=== PATIENT | female | born 1975 | race American Indian/Alaskan Native ===

== ENCOUNTER 2020-02-17 18:26 | Emergency (ER) | payer OTHER ==
[2020-02-17 18:31] VITALS: BP 144/82
--- NOTE | 2020-02-17 19:03 | Emergency Department Report ---
ED General Adult HPI - General Chief complaint: Neck Pain/Injury Stated complaint: NECK SWELLING Time Seen by Provider: 02/17/20 18:47 Source: patient Mode of arrival: Ambulatory Limitations: No Limitations - History of Present Illness Initial comments: Patient is a 44-year-old female with no pertinent past medical history who presents emergency room for evaluation of multiple complaints. Chiefly patient states that she has had increasing number of areas of swelling over her body. Patient states that 1 week ago she developed a hard mass on her left abdomen and at the same time she also developed a right breast mass. Patient states that 3 days ago she then developed a very large mass on her thoracic outlet on the left. She states that the masses are painless she has had no fever no chills no cough no shortness of breath no nausea no vomiting no diarrhea. She also complains that she has had right lower back pain. She states her period started yesterday and the pain actually improved after her period began. 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 Severity scale (0 -10): 0 - Related Data Previous Rx's Medication Instructions Recorded Last Taken Type Cyclobenzaprine [Flexeril] 10 mg PO TID PRN #15 tablet 10/02/19 Unknown Rx Ibuprofen [Motrin] 800 mg PO Q8HR PRN #24 tablet 10/02/19 Unknown Rx Allergies Allergy/AdvReac Type Severity Reaction Status Date / Time No Known Allergies Allergy Unverified 10/02/19 19:56 ED Review of Systems ROS: Stated complaint: NECK SWELLING Other details as noted in HPI Constitutional: denies: chills, fever Eyes: denies: eye pain, eye discharge, vision change ENT: denies: ear pain, throat pain Respiratory: denies: cough, shortness of breath, wheezing Cardiovascular: denies: chest pain, palpitations Endocrine: no symptoms reported Gastrointestinal: denies: abdominal pain, nausea, diarrhea Genitourinary: denies: urgency, dysuria, discharge Musculoskeletal: back pain. denies: joint swelling, arthralgia Skin: lesions (left abdomen, left breast, left thoracic outlet). denies: rash Neurological: denies: headache, weakness, paresthesias Psychiatric: denies: anxiety, depression Hematological/Lymphatic: denies: easy bleeding, easy bruising Other: decreased sleep ED Past Medical Hx - Past Medical History Previous Medical History?: No - Surgical History Past Surgical History?: Yes Additional Surgical History: - Social History Smoking Status: Never Smoker Substance Use Type: None - Medications Home Medications: Home Medications Medication Instructions Recorded Confirmed Last Taken Type Cyclobenzaprine [Flexeril] 10 mg PO TID PRN #15 tablet 10/02/19 Unknown Rx Ibuprofen [Motrin] 800 mg PO Q8HR PRN #24 tablet 10/02/19 Unknown Rx ED Physical Exam - General Limitations: No Limitations General appearance: alert, in no apparent distress - Head Head exam: Present: atraumatic, normocephalic - Eye Eye exam: Present: normal appearance - ENT ENT exam: Present: mucous membranes moist - Neck Neck exam: Present: other (Large left thoracic outlet mass that is non painful to palpation). Absent: tenderness - Respiratory Respiratory exam: Present: normal lung sounds bilaterally. Absent: respiratory distress - Cardiovascular Cardiovascular Exam: Present: regular rate, normal rhythm. Absent: systolic murmur, diastolic murmur, rubs, gallop - GI/Abdominal GI/Abdominal exam: Present: soft, normal bowel sounds, mass (left abdomen 3cm mass ) - Extremities Exam Extremities exam: Present: normal inspection - Back Exam Back exam: Present: normal inspection - Neurological Exam Neurological exam: Present: alert, oriented X3 - Psychiatric Psychiatric exam: Present: normal affect, normal mood - Skin Skin exam: Present: warm, dry, intact, normal color, other (right breast mass measuring 3cm also noted.). Absent: rash ED Course Vital Signs 02/17/20 18:28 Temperature 98.0 F Pulse Rate 82 Respiratory 14 Rate Blood Pressure 144/82 [Right] O2 Sat by Pulse 99 Oximetry - Reevaluation(s) Reevaluation #1: 02/17/20 23:24 Patient has a mildly elevated creatinine of 1.4. And this is her only pertinent laboratory abnormality. However patient's CT scan demonstrates significant matted retroperitoneal soft tissue most consistent with lymphoma. This is resulting in obstruction of the left ureter with severe hydronephrosis. There is a subcutaneous soft tissue in the left upper quadrant correlate with physical exam and dedicated ultrasound however this is most likely related to lymphoma. Gallbladder wall thickening without stones is also noted and could potentially be due to lymphoma may test involvement of the gallbladder. There is an axillary lymph node as well which could be related to lymph node or breast tissue of the axillary tail. Patient also has a 4 mm right lower lobe pulmonary nodule that is most likely benign however follow-up imaging is recommended. I discussed these findings with the patient and advised her to follow-up with her primary care provider who would be best able to refer her to both urology with concern for the cancer induced hydronephrosis and also to oncology for staging of her cancer and initiation of treatment. Patient expressed understanding and agreement of the plan of care. She was given IV fluids for her Jorge Luis prior to discharge. 02/17/20 23:32 02/17/20 23:37 ED Medical Decision Making - Lab Data Result diagrams: 02/17/20 19:06 02/17/20 19:06 - Medical Decision Making 44-year-old female presenting with multiple areas of masses on her body. (Left thoracic outlet left abdominal wall right breast. Vital signs stable on ED ar rival. Physical exam redemonstrates solid palpable painless masses as described in HPI. Gave consideration to TB versus lipomas versus metastatic disease. CT abdomen and chest were ordered to evaluate further and basic labs were ordered to coordinate imaging. Additionally patient complained of lower back pain and consideration was given to urinary tract infection versus low back pain secondary to menses. CT imaging will also characterize further. As it relates to decreased sleep, I had a discussion with the patient regarding sleep aids and sleep hygiene. She expressed understanding of sleep hygiene and was amenable to trying that as her first measure to address her issues with sleep. Dispo pending remainder of her work-up. Critical care attestation.: If time is entered above; I have spent that time in minutes in the direct care of this critically ill patient, excluding procedure time. ED Disposition Clinical Impression: Lymphoma, JORGE LUIS (acute kidney injury), Hydronephrosis Disposition: TO HOME OR SELFCARE Is pt being admited?: No Does the pt Need Aspirin: No Condition: Stable Instructions: Acute Kidney Injury, Adult, Hydronephrosis Referrals: [facility] [Provider Group] - 3-5 Days Time of Disposition: 23:24
[2020-02-17 19:18] LABS: Basophils % (Auto) 0.3 % (0.0-1.8); Eosinophils # (Auto) 0.3 K/mm3 (0.0-0.4); Hemoglobin 11.4 gm/dl (10.1-14.3); Lymphocytes # (Auto) 1.8 K/mm3 (1.2-5.4); Lymphocytes % (Auto) 28.1 % (13.4-35.0); Mean Corpuscular HGB Conc 34 % (30-34); Mean Corpuscular Volume 85 fl (79-97); Monocytes # (Auto) 0.4 K/mm3 (0.0-0.8); Monocytes % (Auto) 6.9 % (0.0-7.3); Platelet Count 172 K/mm3 (140-440); Red Blood Count 3.99 M/mm3 (3.65-5.03); Red Cell Distribution Width 13.5 % (13.2-15.2)
[2020-02-17 19:40] LABS: Albumin 3.8 g/dL (3.9-5); Calcium 9.1 mg/dL (8.4-10.2)
[2020-02-17 21:47] LABS: Bacteria,Urine 1+ /HPF (Negative); Bilirubin,Urine NEG (Negative); Blood,Urine LG (Negative); Color,Urine Yellow (Yellow); Mucus,Urine FEW /HPF; Protein,Urine <15 mg/dL mg/dL (Negative); Urobilinogen,Urine < 2.0 mg/dL (<2.0)
[2020-02-17 21:48] LABS: RBC,Urine > 182.0 /HPF (0.0-6.0)
[2020-02-17 21:54] LABS: HCG Qualitative,Urine Negative (Negative)
--- NOTE | 2020-02-17 23:11 | Cat Scan Report ---
CT chest w con, CT abdomen pelvis w con INDICATION / CLINICAL INFORMATION: thoracic outlet, abd wall and breast swelling. TECHNIQUE: Axial CT images were obtained through the chest, abdomen and pelvis. All CT scans at this location ar e performed using CT dose reduction for ALARA by means of automated exposure control. COMPARISON: None available. FINDINGS: CHEST: Lungs: Lungs are clear No pleural effusion. No pneumothorax. 3 mm posterior basal segment right low er lobe pulmonary nodule on image 35 series 6. Heart: No significant abnormality. Mediastinum: No significant abnormality. ADDITIONAL FINDINGS: There is subcutaneous soft tissue extending in the example on image 18 of series 2 measuring 1.7 cm. Possible skin thickening in the bilateral axilla. ABDOMEN and PELVIS: Liver: No significant abnormality. Biliary: Nondistended gallbladder with significant perigallbladder thickening of soft tissue attenuat ion. Spleen: No significant abnormality. Unenlarged. Pancreas: No significant abnormality. Adrenals: No significant abnormality. Kidneys: Severe left hydronephrosis. Delayed left renal nephrogram consistent with obstruction. Perin ephric fluid is present. Lymphatics: There is matted retroperitoneal soft tissue in the retroperitoneum predominantly in the p eriaortic compartments. The adenopathy extends along the left greater than right iliac chain. Vasculature: No significant abnormality. Bowel: Small umbilical hernia containing short segment of bowel. No obstruction. No significant abnor mality. Pelvis: Fundal fibroid. Ovaries appear symmetric. Osseous Structures: No aggressive osseous lesion. Additional Findings: Soft tissue measuring 2.7 cm in the left ventral upper abdomen subcutaneous soft tissues on image 25 series 3. This extends to and involves the skin. IMPRESSION: 1. Significant matted retroperitoneal soft tissue most consistent with lymphoma. This is resulting in obstruction of the left ureter with severe hydronephrosis. 2. There is a subcutaneous soft tissue in the left upper quadrant. Correlate with physical exam and d edicated ultrasound however this is most likely related to lymphoma. 3. Gallbladder wall thickening without stones which is thought to be related to lymphomatous involvem ent of the gallbladder. Dedicated ultrasound recommended. 4. There is a subcutaneous left axillary nodule which could be related to a lymph node or breast tiss ue in the axillay tail. 5. 4 mm right lower lobe pulmonary nodule is most likely benign in etiology. However, further attenti on to be made on follow-up imaging. Signer Name: Elia Eid MD Signed: 02/17/2020 11:07 PM Workstation Name: [id number]
[2020-02-17] MEDS ORDERED: SODIUM CHLORIDE 0.9% 1000 ML 1,000 ML IV ONE (23:14)
== END 2020-02-18 00:23 | disposition home or self-care (01) ==
LOC: ED 18:26
DX: C85.90 Non-Hodgkin lymphoma, unspecified, unspecified site (principal); N17.9 Acute kidney failure, unspecified; N13.30 Unspecified hydronephrosis; Z98.890 Other specified postprocedural states; Z79.899 Other long term (current) drug therapy
CPT/HCPCS: 36415; 71260; 74177; 80053; 81001; 81025; 84703; 85025; 96360; 99284; J7030; Q9967

== ENCOUNTER 2020-09-19 06:30 | Day surgery (SDC) | payer BC ==
[~2020-09-19 06:30] MED LIST: LACTATED RINGERS 1,000 ML IV SCH; MIDAZOLAM 2 MG/2 ML INJ IV NR
[2020-09-19] MEDS ORDERED: LIDOCAINE MPF (2%) 20 MG/1 ML VIAL 5 ML ONE (08:19)
[2020-09-19] MEDS ORDERED: fentaNYL 100 MCG/2 ML INJ ONE (08:19)
[2020-09-19] MEDS ORDERED: propofoL 200 MG/20 ML VIAL IV ONE (08:20)
--- NOTE | 2020-09-19 08:42 | Anesthesia Day of Surgery ---
Anesthesia Day of Surgery - Day of Surgery Patient Examined: Yes Patient H&P Reviewed: Yes Patient is NPO: Yes
--- NOTE | 2020-09-19 08:43 | Anesthesia Consultation ---
Anesthesia Consult and Med Hx Date of service: 09/19/20 - Airway Anesthetic Teeth Evaluation: Good ROM Head & Neck: Adequate Mental/Hyoid Distance: Adequate Mallampati Class: Class III Intubation Access Assessment: Possibly Difficult (previous LMA 4) - Pre-Operative Health Status ASA Pre-Surgery Classification: ASA3 Proposed Anesthetic Plan: General - Pulmonary Hx Respiratory Symptoms: No (hx PE on eliquis; last dose 09/18/20) - Cardiovascular System Hx Hypertension: No Hx Heart Attack/AMI: No - Central Nervous System CVA: No - Endocrine Hx Renal Disease: No Hx Liver Disease: No Hx Insulin Dependent Diabetes: No Hx Non-Insulin Dependent Diabetes: No - Hematic Hx Anemia: Yes (thrombocytopenia) - Other Systems Hx Cancer: Yes - Additional Comments Anesthesia Medical History Comments: No hx anesthetic complications. Plt 90 today. Surgeon aware and OK to proceed.
[2020-09-19 08:53] LABS: Hematocrit 35.8 % (30.3-42.9); Hemoglobin 12.2 gm/dl (10.1-14.3); Mean Corpuscular HGB Conc 34 % (30-34); Mean Corpuscular Volume 90 fl (79-97); Red Blood Count 3.96 M/mm3 (3.65-5.03); Red Cell Distribution Width 17.1 % (13.2-15.2)
[2020-09-19] MEDS ORDERED: ceFAZolin/Water 2 GM/20 ML 2 GM/20 ML SYRINGE IV ONE (09:01)
[2020-09-19] MEDS ORDERED: ONDANSETRON 4 MG/2 ML INJ IV PRN (09:01)
[2020-09-19] MEDS ORDERED: HYDROcodone/ACETAMINOPHEN 5-325 MG TAB PO PRN (09:01)
[2020-09-19] MEDS ORDERED: fentaNYL 100 MCG/2 ML INJ IV PRN (09:01)
[2020-09-19] MEDS ORDERED: ceFAZolin/STERILE WATER 2 GM/20 ML SYRINGE IV NR (09:02)
[2020-09-19 09:15] LABS: Platelet Count 90 K/mm3 (140-440)
[2020-09-19] MEDS ORDERED: WATER FOR IRRIG STERILE 2000 ML IR ONE (09:45)
[2020-09-19] MEDS ORDERED: WATER FOR IRRIG STERILE 1,500 ML BOTTLE IR ONE (09:45)
[2020-09-19] MEDS ORDERED: ePHEDrine SULFATE 50 MG/1 ML INJ ONE (09:47)
--- NOTE | 2020-09-19 10:21 | Short Stay Summary ---
Short Stay Documentation Date of service: 09/19/20 - History H&P: obtained from office - Allergies and Medications Current Medications: Allergies No Known Allergies Allergy (Verified 09/11/20 14:19) Home Medications Medication Instructions Recorded Confirmed Last Taken Type Apixaban [Eliquis] 5 mg PO QAM #600 tablet 04/04/20 09/19/20 09/18/20 Rx Active Medications Hydrocodone Bitart/Acetaminophen (Hydrocodone/Acetaminophen 5-325 Mg Tab) 2 each PO ONCE PRN PRN Reason: Pain, Moderate (4-6) Stop: 09/19/20 10:30 Fentanyl (Fentanyl 100 Mcg/2 Ml Inj) 50 mcg IV Q5MIN PRN PRN Reason: Pain , Severe (7-10) Stop: 09/19/20 23:00 Lactated Ringer's (Lactated Ringers) 1,000 mls @ 100 mls/hr IV DIRECT SKY Stop: 09/19/20 23:59 Midazolam HCl (Midazolam 2 Mg/2 Ml Inj) 2 mg IV PREOP NR Stop: 09/19/20 23:00 Ondansetron HCl (Ondansetron 4 Mg/2 Ml Inj) 4 mg IV ONCE PRN PRN Reason: Nausea And Vomiting Stop: 09/19/20 10:30 - Brief post op/procedure progress note Date of procedure: 09/19/20 Pre-op diagnosis: bilat hyronephrosis Post-op diagnosis: same Procedure: cysto, left rpg, bilat stent exchange 6f x 22cm short string---internal - Hospital course Hospital course: macrobid & norco on chart - Disposition Condition at discharge: Stable Disposition: DC-01 TO HOME OR SELFCARE Short Stay Discharge Plan Follow up with: PRIMARY CARE, [Primary Care Provider] - 7 Days
--- NOTE | 2020-09-19 10:41 | Operative Report ---
DATE OF SURGERY: 09/19/2020 PREOPERATIVE DIAGNOSIS: Bilateral hydronephrosis, status post bilateral stent placement. POSTOPERATIVE DIAGNOSIS: Bilateral hydronephrosis, status post bilateral stent placement. PROCEDURE PERFORMED: Cystoscopy, left retrograde pyelogram, bilateral double-J stent exchange (6-Dutch 22 cm with a short internal string). SURGEON: Pete Burroughs M.D. ANESTHESIA: General. ESTIMATED BLOOD LOSS: Minimal. FLUIDS: Crystalloid. COMPLICATIONS: No complications. INDICATIONS: This patient is a 45-year-old female, originally seen in March of this year. She had a pulmonary embolus workup, revealed a colon cancer, which she is seeing Dr. Thomason at [facility], her director operations broadcast is Dr. Law. She presents for stent exchange and she is continuing chemotherapy at this point. DESCRIPTION OF PROCEDURE: The patient was taken to the operative suite, placed in supine position. After adequate general anesthesia, was placed in the dorsal lithotomy position, prepped and draped in a sterile fashion. Pancystourethroscopy was performed with a 22-Dutch Storz cystoscope. Obvious stents in the bladder. No tumors or stones. Paint Sprayer Sandblaster film revealed an adequate position. Left retrograde pyelogram was performed. There appeared to be somewhat of a blockage in the distal third of the ureter. I did not want to manipulate too much due to she is still on her anticoagulant therapy for pulmonary embolus. A 0.035 Glidewire was advanced up the ureter. Stent was removed. A new 6-Dutch 22 cm stent was placed under fluoroscopic guidance. A similar procedure was performed on the right. No attempt at pyelogram was obtained on this side. Stents were in good position, documented under fluoroscopy. The patient tolerated the procedure well. She was extubated and taken to recovery room. She will go home on [employer] and follow up in the office. TID: [id number] RECEIPT: [id number] MARICRUZ/JUDITH
[2020-09-19 11:02] VITALS: BP 126/77
--- NOTE | 2020-09-19 11:50 | Post Anesthesia Evaluation ---
- Post Anesthesia Evaluation Patient Participated: Yes Airway Patent: Yes Stable Respiratory Function: Yes Nausea/Vomiting: No Temp > 96.8F: Yes Pain Manageable: Yes Adequeate Hydration: Yes Anesthesia Complications: No
--- NOTE | 2020-09-19 20:18 | Fluoroscopy Report ---
INTRAOPERATIVE FLUOROSCOPY: RETROGRADE UROGRAPHY INDICATION / CLINICAL INFORMATION: HYDRONEPHROSIS. TECHNIQUE: Intraoperative spot images were obtained during the procedure. FINDINGS: Images show ureteral stent placement and retrograde pyelogram See operative/procedure note by performing physician for full details. Fluoroscopy Time: 33 seconds. Fluoroscopy Images: 3. Signer Name: Gavin Liu MD Signed: 09/19/2020 8:14 PM Workstation Name: [id number]
== END 2020-09-19 11:55 | disposition home or self-care (01) ==
LOC: OR 06:30
PROVIDERS: ATTEND Urology
DX: N13.1 Hydronephrosis with ureteral stricture, not elsewhere classified (principal); D69.6 Thrombocytopenia, unspecified; C80.1 Malignant (primary) neoplasm, unspecified; Z71.3 Dietary counseling and surveillance; Z79.899 Other long term (current) drug therapy; Z98.890 Other specified postprocedural states; Z20.822 Contact with and (suspected) exposure to COVID-19
CPT/HCPCS: 36415; 52332; 74420; 84703; 85027; A4217; C1758; C1769; C2617; J0690; J2704; J3010; J7120; Q9967; U0003

== ENCOUNTER 2021-01-09 14:02 | Emergency (ER) | payer BC, OTHER ==
--- NOTE | 2021-01-09 14:51 | Emergency Department Report ---
ED General Adult HPI - General Chief complaint: Vaginal Bleeding Stated complaint: VAGINAL BLEEDING PUI?: No Time Seen by Provider: 01/09/21 14:24 Source: patient Mode of arrival: Ambulatory Limitations: No Limitations - History of Present Illness Initial comments: 45-year-old female presents to the ER today with complaints of abnormal vaginal bleeding. Patient states that the bleeding started about 3 weeks ago. Patient states that bleeding has been heavier than menstrual cycle with passage of clots. She is unable to recall exactly normal pad she has been changing over the past 3 weeks, but today she is only changed to. She states the last time she had a normal menstrual cycle was in October 2020. She states that she knows she is not . She states that she thought the bleeding was related to her being on Eliquis which she takes for pulmonary embolus and so she followed up with her vascular surgeon around 3 weeks ago. She states that her dose was decreased from 5 mg twice a day to 2.5 mg twice a day and she was instructed that if the bleeding does not stop to follow-up with her [facility]. Patient states that she called to make a follow-up appointment, they did not have any appointments until January. She did not make an appointment. She did see her primary care doctor yesterday who did labs and her hemoglobin at the time was 9. She states that the main reason she is here is because she wants medication to have the bleeding stopped and was hoping to see the [facility] here in the ER today. She reports ass ociated generalized fatigue and weakness. She denies any associate abdominal cramps. She denies any abnormal discharge or UTI symptoms. She denies any fever or chills. She states that she has never been on any control. Other than the PE she denies any other significant past medical history. She states she has been taking her iron supplements. Complaint: Abnormal vaginal bleeding -: week(s) (3) Severity scale (0 -10): 4 - Related Data Previous Rx's Medication Instructions Recorded Last Taken Type Apixaban [Eliquis] 5 mg PO QAM #600 tablet 04/04/20 09/18/20 Rx Allergies Allergy/AdvReac Type Severity Reaction Status Date / Time No Known Allergies Allergy Verified 09/11/20 14:19 ED Review of Systems ROS: Stated complaint: VAGINAL BLEEDING Other details as noted in HPI Comment: All other systems reviewed and negative Constitutional: denies: chills, diaphoresis, fever, malaise, weakness Eyes: denies: eye pain, eye discharge, vision change ENT: denies: ear pain, throat pain Respiratory: denies: cough, shortness of breath, SOB with exertion, SOB at rest, wheezing Cardiovascular: denies: chest pain, palpitations, dyspnea on exertion, orthopnea, edema, syncope, paroxysmal nocturnal dyspnea Gastrointestinal: denies: abdominal pain, nausea, vomiting, diarrhea, constipation, hematemesis, hematochezia Genitourinary: abnormal menses. denies: urgency, dysuria, frequency, hematuria, discharge, dyspareunia Neurological: denies: headache, weakness, paresthesias Psychiatric: denies: anxiety, depression, auditory hallucinations, visual hallucinations, homicidal thoughts, suicidal thoughts Hematological/Lymphatic: denies: easy bleeding, easy bruising, swollen glands ED Past Medical Hx - Past Medical History Previous Medical History?: Yes Hx Hypertension: No Hx Heart Attack/AMI: No Hx Deep Vein Thrombosis: Yes (03/2020 LEFT POPLITEAL- ON ELIQUIS) Hx Pulmonary Embolism: Yes (MORE PE'S 03/2020 ON ELIQUIS) Hx Liver Disease: No Hx Renal Disease: No - Surgical History Past Surgical History?: Yes Additional Surgical History: - Social History Smoking Status: Never Smoker - Medications Home Medications: Home Medications Medication Instructions Recorded Confirmed Last Taken Type Apixaban [Eliquis] 5 mg PO QAM #600 tablet 04/04/20 09/19/20 09/18/20 Rx ED Physical Exam - General Limitations: No Limitations General appearance: alert, in no apparent distress - Head Head exam: Present: atraumatic, normocephalic, normal inspection - Eye Eye exam: Present: normal appearance, PERRL, EOMI, other (Mildly pale conjunctivia ) Pupils: Present: normal accommodation - Neck Neck exam: Present: normal inspection, full ROM - Respiratory Respiratory exam: Present: normal lung sounds bilaterally. Absent: respiratory distress, wheezes, rales, rhonchi, stridor - Cardiovascular Cardiovascular Exam: Present: regular rate, normal rhythm, normal heart sounds - GI/Abdominal GI/Abdominal exam: Present: soft. Absent: distended, tenderness, guarding, rebound - Neurological Exam Neurological exam: Present: alert, oriented X3, CN II-XII intact, normal gait - Psychiatric Psychiatric exam: Present: normal affect, normal mood - Skin Skin exam: Present: intact ED Course Vital Signs 01/09/21 14:03 Temperature 97.1 F L Pulse Rate 101 H Respiratory 18 Rate Blood Pressure 134/95 [Right] O2 Sat by Pulse 99 Oximetry ED Medical Decision Making - Lab Data Result diagrams: 01/09/21 14:52 01/09/21 14:52 - Medical Decision Making CBC normal. HCG negative Pt is well appearing, not toxic and not in any distress. She denies abd pain and she has soft non tender abd. She is neurologically intact with nl gait. She is hemodynamically stable Discussed results with patient. Recommend she continue taking iron supplements. Patient request medication to stop the bleeding, informed patient that typically would give medication like Provera which is hormone, but given her history of PE, I told patient it is best that she follows up with [facility] instead of getting the prescription I can cause DVT/PE. Also her hemoglobin is stable which means that her body is compensating for the bleeding. Patient expressed understanding of all instructions and agree with plan. Patient stable at time of discharge. Critical care attestation.: If time is entered above; I have spent that time in minutes in the direct care of this critically ill patient, excluding procedure time. ED Disposition Clinical Impression: Abnormal vaginal bleeding Disposition: 01 HOME / SELF CARE / HOMELESS Is pt being admited?: No Does the pt Need Aspirin: No Condition: Stable Instructions: Abnormal Uterine Bleeding Additional Instructions: Recommend that you continue taking your iron supplements. I do recommend that you call and make an appointment to see [facility] for evaluation of your abnormal vaginal bleeding. Return to the ER if any of your symptoms worsens. Referrals: [facility] [Provider Group] - 3-5 Days [facility] [Provider Group] - 3-5 Days Time of Disposition: 16:13
[2021-01-09 15:26] LABS: Alanine Aminotransferase 12 units/L (7-56); Albumin 4.1 g/dL (3.9-5); BUN/Creatinine Ratio 7; Blood Urea Nitrogen 8 mg/dL (7-17); Calcium 9.2 mg/dL (8.4-10.2); Hemolysis Index 3
[2021-01-09 16:10] LABS: Basophils % (Auto) 0.1 % (0.0-1.8); Eosinophils # (Auto) 0.1 K/mm3 (0.0-0.4); Eosinophils % (Auto) 2.5 % (0.0-4.3); Hematocrit 33.3 % (30.3-42.9); Hemoglobin 10.5 gm/dl (10.1-14.3); Lymphocytes # (Auto) 1.2 K/mm3 (1.2-5.4); Lymphocytes % (Auto) 26.4 % (13.4-35.0); Mean Corpuscular HGB Conc 32 % (30-34); Mean Corpuscular Volume 91 fl (79-97); Monocytes # (Auto) 0.4 K/mm3 (0.0-0.8); Platelet Count 168 K/mm3 (140-440); Red Blood Count 3.66 M/mm3 (3.65-5.03); Red Cell Distribution Width 16.6 % (13.2-15.2)
[2021-01-09 16:22] VITALS: BP 121/76
== END 2021-01-09 16:22 | disposition home or self-care (01) ==
LOC: ED 14:02
DX: N93.9 Abnormal uterine and vaginal bleeding, unspecified (principal)
CPT/HCPCS: 36415; 80053; 84703; 85025; 99283

== ENCOUNTER 2021-03-28 11:39 | Day surgery (SDC) | payer OTHER ==
[2021-03-28] MEDS ORDERED: SODIUM CHLORIDE 0.9% 500 ML 500 ML IV SCH ×2 (12:15→13:00)
[2021-03-28] MEDS ORDERED: fentaNYL 100 MCG/2 ML INJ IV ONE (12:39)
[2021-03-28] MEDS ORDERED: SODIUM CHLORIDE 0.9% 1000 ML 1,000 ML ONE (13:19)
[2021-03-28 13:23] LABS: Basophils % (Auto) 0.1 % (0.0-1.8); Eosinophils % (Auto) 0.1 % (0.0-4.3); Hematocrit 33.7 % (30.3-42.9); Hemoglobin 10.7 gm/dl (10.1-14.3); Lymphocytes # (Auto) 0.9 K/mm3 (1.2-5.4); Lymphocytes % (Auto) 10.7 % (13.4-35.0); Mean Corpuscular HGB Conc 32 % (30-34); Mean Corpuscular Volume 79 fl (79-97); Monocytes # (Auto) 0.6 K/mm3 (0.0-0.8); Monocytes % (Auto) 6.5 % (0.0-7.3); Platelet Count 345 K/mm3 (140-440); Red Blood Count 4.24 M/mm3 (3.65-5.03); Red Cell Distribution Width 17.3 % (13.2-15.2)
[2021-03-28 13:32] LABS: INR 1.16 (0.87-1.13)
[2021-03-28 13:33] LABS: Partial Thromboplastin Time 26.5 Sec. (24.2-36.6)
[2021-03-28] MEDS ORDERED: KETAMINE/STERILE WATER 50 MG/ML SYRINGE ONE (13:35)
[2021-03-28] MEDS ORDERED: fentaNYL 100 MCG/2 ML INJ ONE (13:35)
[2021-03-28] MEDS ORDERED: MIDAZOLAM 2 MG/2 ML INJ ONE (13:35)
[2021-03-28] MEDS ORDERED: LIDOCAINE MPF (2%) 20 MG/1 ML VIAL 5 ML ONE (13:36)
--- NOTE | 2021-03-28 13:44 | Anesthesia Day of Surgery ---
Anesthesia Day of Surgery - Day of Surgery Patient Examined: Yes Patient H&P Reviewed: Yes Patient is NPO: Yes
--- NOTE | 2021-03-28 13:48 | Anesthesia Consultation ---
Anesthesia Consult and Med Hx Date of service: 03/28/21 - Airway Anesthetic Teeth Evaluation: Good ROM Head & Neck: Adequate Mental/Hyoid Distance: Adequate Mallampati Class: Class III Intubation Access Assessment: Probably Good - Pre-Operative Health Status ASA Pre-Surgery Classification: ASA3 Proposed Anesthetic Plan: MAC (GA if needed) - Pulmonary Hx Smoking: No Hx Respiratory Symptoms: No (hx PE on eliquis) SOB: Yes - Cardiovascular System Hx Hypertension: No Hx Heart Attack/AMI: No - Central Nervous System CVA: No - Gastrointestinal Hx Gastroesophageal Reflux Disease: No - Endocrine Hx Renal Disease: Yes (Stents because of lymphoma) Hx End Stage Renal Disease: No Hx Liver Disease: No Hx Insulin Dependent Diabetes: No Hx Non-Insulin Dependent Diabetes: No - Hematic Hx Anemia: Yes (thrombocytopenia) Hx Sickle Cell Disease: No - Other Systems Hx Cancer: Yes Hx Obesity: No - Additional Comments Anesthesia Medical History Comments: Was here [id number] and [id number]
[2021-03-28 13:52] LABS: Calcium 9.4 mg/dL (8.4-10.2)
[2021-03-28] MEDS ORDERED: HEPARIN 10,000 UNITS/10 ML VIAL ONE (14:23)
[2021-03-28] MEDS ORDERED: HEPARIN/NS 5000 UNIT/500ML 1,000 ML IR ONE (14:23)
[2021-03-28] MEDS ORDERED: ceFAZolin/Water 2 GM/20 ML 2 GM/20 ML SYRINGE IV ONE (14:24)
[2021-03-28] MEDS: LIDOCAINE (2%) 20 MG/1 ML VIAL 20 ML MDV INFILTRATI ONE ×2 (14:44→14:55)
[2021-03-28] MEDS ORDERED: FAMOTIDINE 20 MG/2 ML INJ IV ONE (15:22)
--- NOTE | 2021-03-28 15:41 | Short Stay Summary ---
Short Stay Documentation Date of service: 03/28/21 - History Principal diagnosis: Left lower extremity swelling H&P: obtained from office - Allergies and Medications Current Medications: Allergies No Known Allergies Allergy (Verified 09/11/20 14:19) Home Medications Medication Instructions Recorded Confirmed Last Taken Type Apixaban [Eliquis] 5 mg PO QAM #600 tablet 04/04/20 03/28/21 03/28/21 11:00 Rx Active Medications Sodium Chloride (Nacl 0.9% 500 Ml) 500 mls @ 50 mls/hr IV DIRECT SKY - Brief post op/procedure progress note Date of procedure: 03/28/21 Pre-op diagnosis: Left lower extremity swelling Post-op diagnosis: same Procedure: Left lower extremity IVUS, venogram, stent placement with venoplasty Anesthesia: local Surgeon: ANGEL DELGADO Estimated blood loss: minimal Pathology: none Condition: stable - Disposition Condition at discharge: Good Disposition: 01 HOME / SELF CARE / HOMELESS Short Stay Discharge Plan Activity: advance as tolerated Weight Bearing Status: Weight Bear as Tolerated Diet: regular Wound: keep clean and dry, per your surgeon's advice Follow up with: EUGENIO MELARA JR, MD [Primary Care Provider] - 7 Days
--- NOTE | 2021-03-28 15:49 | Operative Report ---
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 Patient with symptomatic severe pain and swelling involving her left leg. Date: 03/28/2021 Procedure: Following an explanation of the risks, benefits and alternatives; written informed consent was obtained. The patient was brought to the angiographic suite and placed in supine position on the examination table. Initial ultrasound evaluation of the patient's left leg was performed. Significant soft tissue edema is identified throughout the left leg. Ultimately, the small saphenous vein was chosen for access. 1% lidocaine was used for anesthesia. Under ultrasound guidance, a 7 cm 21-gauge needle was advanced into the small saphenous vein. A 0.018 guidewire was advanced through the needle. The needle was removed and a microsheath placed. The 0.018 guidewire was exchanged for a 0.035 guidewire and the micro sheath exchanged for a 5 Italian vascular sheath. Contrast was injected which demonstrates appropriate positioning with prompt opacification of the femoral vein. Venogram was performed throughout the sheath and catheters placed in the femoral vein, external iliac vein and common iliac vein on the left. 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 The sheath was upsized over the guidewires to a 10 Italian sheath. Intravascular ultrasound was performed from the IVC to the mid femoral vein. This demonstrates 80% stenosis in the common iliac vein at the origin and well as a separate 70% stenosis at the inguinal ligament. A 16 mm x 150 mm Opry stent was advanced through the sheath and deployed from the bifurcation into the external iliac vein. A 14 mm x 150 mm Optiray venous stent was advanced through the sheath and deployed from the external iliac vein into the proximal femoral vein. The stents were seated using a 14 mm x 40 mm balloon insufflated nominal atmospheres for 30 seconds at multiple locations. Post intervention imaging demonstrated improved flow from the left lower extremity with nonvisualization of cross pelvic collaterals. The guidewires catheters and sheaths were removed and hemostasis achieved at the cath using manual compression. Pressure dressing was applied. The patient tolerated the procedure well. There were no immediate post procedure complications. Given the patient's multiple comorbidities, the patient was anesthetized using anesthesia services. Continuous cardiopulmonary monitoring was utilized. 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 2) Intravascular ultrasound from the IVC with imaged vessels including the IVC, left common iliac vein, left external iliac vein, left common femoral vein and proximal left femoral vein demonstrating 80% stenosis in the left common iliac vein at the origin and separate 70% stenosis of the external iliac vein at the inguinal ligament. 3) Treatment of the stenosis with placement of a 16 mm x 150 mm stent extending from the bifurcation to the external iliac vein with 14 mm x 150 mm stent extending from the external iliac vein to the femoral vein. The stents were seated using a 14 mm balloon. Post stent placement and post venoplasty imaging demonstrated improved flow with nonvisualization of collateral vessels.
[2021-03-28] MEDS ORDERED: GLYCOPYRROLATE 0.4 MG/2 ML INJ ONE (16:59)
[2021-03-28] MEDS ORDERED: oxyCODONE /ACETAMINOPHEN 5-325MG TAB PO ONE (17:00)
--- NOTE | 2021-03-28 17:06 | Post Anesthesia Evaluation ---
- Post Anesthesia Evaluation Patient Participated: Yes Airway Patent: Yes Stable Respiratory Function: Yes Nausea/Vomiting: No Temp > 96.8F: Yes Pain Manageable: Yes Adequeate Hydration: Yes Anesthesia Complications: No Block Receding Appropriately: Not Applicable Patient on Ventilator: No
[2021-03-28 17:13] VITALS: BP 121/86
== END 2021-03-28 18:08 | disposition home or self-care (01) ==
LOC: CATHLABREC 11:39
PROVIDERS: ATTEND Radiology Diagnostic Radiology
DX: I87.1 Compression of vein (principal); N13.30 Unspecified hydronephrosis; C80.1 Malignant (primary) neoplasm, unspecified; Z86.718 Personal history of other venous thrombosis and embolism; Z79.899 Other long term (current) drug therapy; Z98.891 History of uterine scar from previous surgery; Z86.711 Personal history of pulmonary embolism; Z98.890 Other specified postprocedural states
CPT/HCPCS: 36415; 37238; 37239; 37252; 37253; 75820; 80048; 85025; 85610; 85730; 99156; 99157; C1725; C1751; C1753; C1769; C1876; C1887; C1894; J0690; J1644; J1815; J2250; J2704; J3010; J3490; J7030; U0003; 96374; Q0162; J7040; Q9967